=== PATIENT | female | born 1975 ===

== ENCOUNTER 2017-10-31 16:53 | Observation (INO) | payer BC ==
[2017-10-31 17:17] VITALS: BMI 32.9
[2017-10-31] MEDS ORDERED: Sodium Chloride 0.9% 1,000 ML IV STA (17:22)
--- NOTE | 2017-10-31 17:26 | ED PDOC ---
"Arrival/HPI - General Chief Complaint: Back Pain Time Seen by Provider: 10/31/17 17:20 Historian: Patient - History of Present Illness Narrative History of Present Illness (Text): 10/31/17 17:21 42 y/o female, pmh including renal stone/htn/asthma, nkda, c/o acute onset of rt. flank pain about 3 days ago with no fall or trauma. Aching pain, no abdominal or pelvic pain, no night sweat, no rash, no coughing, no recent traveling, no hematuria. Pt. stated that this feels like her usual renal stone. Past Medical History - Provider Review Nursing Documentation Reviewed: Yes - Infectious Disease Hx of Infectious Diseases: None - Tetanus Immunization Tetanus Immunization: Unknown - Cardiac Hx Hypertension: Yes - Pulmonary Hx Asthma: Yes - Neurological Hx Paralysis: No - HEENT Hx HEENT Disorder: Yes (wears eyeglasses) - Renal Hx Kidney Stones: Yes - Endocrine/Metabolic Hx Diabetes Mellitus Type 1: No Hx Diabetes Mellitus Type 2: No - Hematological/Oncological Hx Blood Transfusions: No - Musculoskeletal/Rheumatological Hx Falls: No - Psychiatric Hx Substance Use: No - Surgical History Hx Appendectomy: Yes Other/Comment: right lumpectomy benign, had removal of osteoghondroma right iliac crest - Anesthesia Hx Anesthesia Reactions: No Hx Malignant Hyperthermia: No - Suicidal Assessment Feels Threatened In Home Enviroment: No Family/Social History - Physician Review Nursing Documentation Reviewed: Yes Family/Social History: Unknown Family HX Smoking Status: Never Smoked Hx Alcohol Use: No Hx Substance Use: No Hx Substance Use Treatment: No Allergies/Home Meds Allergies/Adverse Reactions: Allergies No Known Allergies Allergy (Verified 10/14/14 10:18) Home Medications: Home Meds Medication Instructions Recorded Confirmed No Known Home Med 10/31/17 10/31/17 Review of Systems - Review of Systems Constitutional: absent: Fatigue, Fevers Eyes: absent: Vision Changes ENT: absent: Hearing Changes Respiratory: absent: SOB, Cough Cardiovascular: absent: Chest Pain Gastrointestinal: absent: Abdominal Pain, Nausea, Vomiting Musculoskeletal: Back Pain. absent: Arthralgias Skin: absent: Rash, Pruritis Physical Exam Vital Signs Reviewed: Yes Vital Signs Temp Pulse Resp BP Pulse Ox 10/31/17 20:52 18 99 10/31/17 20:46 98.1 F 73 20 150/88 95 10/31/17 19:00 98.8 F 81 16 99 10/31/17 16:54 98.6 F 79 18 133/91 H 96 Temperature: Afebrile Blood Pressure: Hypertensive Pulse: Regular Respiratory Rate: Normal Appearance: Positive for: Well-Appearing, Non-Toxic, Comfortable Pain Distress: Moderate Mental Status: Positive for: Alert and Oriented X 3 - Systems Exam Head: Present: Atraumatic, Normocephalic Pupils: Present: PERRL Extroacular Muscles: Present: EOMI Conjunctiva: Present: Normal Mouth: Present: Moist Mucous Membranes Neck: Present: Normal Range of Motion Respiratory/Chest: Present: Clear to Auscultation, Good Air Exchange. No: Respiratory Distress, Accessory Muscle Use Cardiovascular: Present: Regular Rate and Rhythm, Normal S1, S2. No: Murmurs Abdomen: No: Tenderness, Distention, Peritoneal Signs Back: Present: Normal Inspection, CVA Tenderness (mild rt. cva tenderess). No: Midline Tenderness, Paraspinal Tenderness, Pain with Leg Raise, Decubitus Ulcer Upper Extremity: Present: Normal Inspection. No: Cyanosis, Edema Lower Extremity: Present: Normal Inspection. No: Edema Neurological: Present: GCS=15, Speech Normal, Motor Func Grossly Intact, Gait Normal, Memory Normal Skin: Present: Warm, Dry, Normal Color. No: Rashes Psychiatric: Present: Alert, Oriented x 3, Normal Insight, Normal Concentration Medical Decision Making ED Course and Treatment: 10/31/17 17:28 -labs/ua -CT abdomen and pelvis -IVF/toradol/zofran -Observe and reassess 10/31/17 18:47 -Labs are non-significant -UA show hematuria but no UTI -CT abdomen and pelvis show No evidence of significant acute process on this unenhanced exam. There is no evidence of nephrolithiasis or obstructive uropathy. - Right flank hernia, containing part of the right colon. No evidence of associated colonic obstruction or hernia incarceration. - Small cystic lesions in the right ovary. See recommendations above. 10/31/17 20:10 -Pt. still has pain, IV dilaudid ordered. Pt. has high risk of having bowel incarceration on the rt. flank, needs admission for observation with surgical consult and analgesic controlled. 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 10/31/17 20:58 -residential therapist paged, discussed about the case and he will discussed with dr. clay. - Lab Interpretations Lab Results: 10/31/17 17:52 10/31/17 17:52 Lab Results 10/31/17 17:52: WBC 11.0, RBC 4.18, Hgb 12.7, Hct 37.8, MCV 90.4, MCH 30.4, MCHC 33.6, RDW 13.7, Plt Count 403, MPV 9.5, Gran % 54.9, Lymph % (Auto) 31.2, [place] % (Auto) 6.9 H, Eos % (Auto) 6.5 H, Baso % (Auto) 0.5, Gran # 6.05, Lymph # (Auto) 3.4, [place] # (Auto) 0.8 H, Eos # (Auto) 0.7, Baso # (Auto) 0.05 10/31/17 17:52: Sodium 141, Potassium 3.7, Chloride 105, Carbon Dioxide 26, Anion Gap 14, BUN 21, Creatinine 0.9, Est GFR ( Amer) > 60, Est GFR (Non- Af Amer) > 60, Random Glucose 94, Calcium 9.6, Magnesium 2.1, Total Bilirubin 0.2, AST 22, ALT 23, Alkaline Phosphatase 95, Total Protein 7.4, Albumin 4.1, Globulin 3.3, Albumin/Globulin Ratio 1.2, Lipase 81 10/31/17 17:52: Urine Color Yellow, Urine Appearance Sl cloudy, Urine pH 6.0, Ur Specific [place] >= 1.030, Urine Protein Negative, Urine Glucose (UA) Negative, Urine Ketones Negative, Urine Blood Large H, Urine Nitrate Negative, Urine Bilirubin Negative, Urine Urobilinogen 0.2, Ur Leukocyte Esterase Negative , Urine RBC 2 - 5, Urine WBC 2 - 5, Ur Epithelial Cells 3 - 4, Urine Bacteria Few I have reviewed the lab results: Yes - RAD Interpretation Radiology Orders: 10/31/17 17:22 ABD & PELVIS W/O PO OR IV CONT [CT] Stat FINDINGS: LUNG BASES: No significant abnormality seen. ABDOMEN: LIVER: No acute abnormality of the liver identified. GALLBLADDER AND BILE DUCTS: Gallbladder appears contracted. No CT evidence of acute cholecystitis. PANCREAS: No CT evidence of acute pancreatitis. SPLEEN: No acute abnormality of the spleen identified. ADRENALS: No acute abnormality of the adrenal glands identified. KIDNEYS AND URETERS: No acute abnormality of the kidneys seen. STOMACH AND BOWEL: Scattered colonic diverticulosis, without evidence of diverticulitis. Otherwise, no significant abnormality of the bowel is identified. No evidence of bowel obstruction. APPENDIX: Normal appendix is not seen, however, there are no significant inflammatory changes visualized in the expected location of the appendix to suggest appendicitis. Recommend clinical correlation. REGINALD JESUS | Final Radiology Report CONFIDENTIALITY STATEMENT This report is intended only for use by the referring physician, and only in accordance with law. If you received this in error, call [phone]. Page 2 of 2 PELVIS: BLADDER: No acute abnormality of the bladder identified. REPRODUCTIVE: Small cystic lesions in the right ovary, the largest of which measures 2 cm. These have a probably benign appearance by CT. They have CT densities mildly higher than expected for simple fluid, and they could represent complex cysts. Followup pelvic ultrasound is recommended, not necessarily on an emergent basis. Small 1.5 cm round, solid in the anterior pelvis, most likely an exophytic uterine fibroid. No acute abnormality of the uterus identified. ABDOMEN and PELVIS: INTRAPERITONEAL SPACE: No evidence of free intraperitoneal air or fluid. BONES/JOINTS: No acute fractures or other acute bony abnormality noted. SOFT TISSUES: Right flank hernia, containing the part of the cecum and the proximal ascending colon. No evidence of associated bowel obstruction. No CT findings to suggest hernia incarceration, although clinical exam is more sensitive for detection of hernia incarceration. VASCULATURE: No evidence of abdominal aortic aneurysm. No evidence of periaortic hemorrhage. LYMPH NODES: No evidence of diffuse lymphadenopathy. IMPRESSION: - No evidence of significant acute process on this unenhanced exam. There is no evidence of nephrolithiasis or obstructive uropathy. - Right flank hernia, containing part of the right colon. No evidence of associated colonic obstruction or hernia incarceration. - Small cystic lesions in the right ovary. See recommendations above. - See above for remaining findings. Thank you for allowing us to participate in the care of your patient. Dictated and Authenticated by: Bianca De La Garza MD 10/31/2017 7:47 PM Eastern Time ([place] & [place]) Roofer Helper: Radiologist - Medication Orders Current Medication Orders: Albuterol/Ipratropium (Duoneb 3 Mg/0.5 Mg (3 Ml) Ud) 3 ml IH Q2H PRN PRN Reason: Shortness of Breath Albuterol/Ipratropium (Duoneb 3 Mg/0.5 Mg (3 Ml) Ud) 3 ml IH [id number] [facility] Last Admin: 11/01/17 07:15 Dose: 3 ml Diphenhydramine HCl (Benadryl) 25 mg PO Q6 PRN PRN Reason: Itching / Pruritus Last Admin: 10/31/17 22:57 Dose: 25 mg Sodium Chloride (Sodium Chloride 0.9%) 1,000 mls @ 122 mls/hr IV .Q8H12M [facility] Ketorolac Tromethamine (Toradol) 15 mg IVP Q6 [facility] Last Admin: 11/01/17 06:16 Dose: 15 mg MAR Pain Assessment Document 11/01/17 06:16 [facility] (Rec: 11[facility]01/17 06:16 [id number] Pain Reassessment Is this a pain reassessment? Yes Sleep Is patient sleeping during reassessment? No Presence of Pain Presence of Pain Yes Pain Scale Used Pain Scale Used Numeric Location Left, Right or Bilateral Right Pain Location Body Site Abdomen Description Description Intermittent Alleviating Factors/Management Medication Techniques Alleviating Factors Medication IVP Administration Document 11/01/17 06:16 [facility] (Rec: 11/01/17 06:16 [id number]) Charges for Administration # of IVP Administrations 1 Lisinopril (Zestril) 5 mg PO DAILY [facility] Last Admin: 11/01/17 10:09 Dose: 5 mg MAR Pulse and Blood Pressure Document 11/01/17 10:09 JOE (Rec: 11/01/17 10:09 AJ [id number]) Pulse Pulse Rate (60-90) 73 Blood Pressure Blood Pressure (100/60-150/90) 124/75 Ondansetron HCl (Zofran Inj) 4 mg IVP Q6H PRN PRN Reason: Nausea/Vomiting Pantoprazole Sodium (Protonix Ec Tab) 40 mg PO 0600 [facility] Last Admin: 11/01/17 06:17 Dose: 40 mg Discontinued Medications Albuterol/Ipratropium (Duoneb 3 Mg/0.5 Mg (3 Ml) Ud) 3 ml IH STAT STA Stop: 10/31/17 22:19 Last Admin: 10/31/17 22:57 Dose: 3 ml Hydromorphone HCl (Dilaudid) 0.5 mg IVP STAT STA Stop: 10/31/17 20:14 Last Admin: 10/31/17 20:24 Dose: Not Given Non-Admin Reason: Patient Refused Sodium Chloride (Sodium Chloride 0.9%) 1,000 mls @ 999 mls/hr IV .Q1H1M STA Stop: 10/31/17 18:22 Last Admin: 10/31/17 17:54 Dose: 999 mls/hr eMAR Start Stop Document 10/31/17 17:54 [email or web address] (Rec: 10/31/17 17:54 [email or web address] [id number]- [facility] [employer] [employer]) Intravenous Solution Start Date 10/31/17 Start Time 17:54 End Date 10/31/17 Sodium Chloride (Sodium Chloride 0.9%) 1,000 mls @ 100 mls/hr IV .Q10H [facility] Last Admin: 10/31/17 22:58 Dose: 100 mls/hr eMAR Start Stop Document 10/31/17 22:58 [facility] (Rec: 10/31/17 22:58 [id number]) Intravenous Solution Start Date 10/31/17 Start Time 22:58 Ketorolac Tromethamine (Toradol) 30 mg IVP STAT STA Stop: 10/31/17 17:23 Last Admin: 10/31/17 17:55 Dose: 30 mg MAR Pain Assessment Document 10/31/17 17:55 [email or web address] (Rec: 10/31/17 17:55 [email or web address] [id number] [employer]) Pain Reassessment Is this a pain reassessment? No Sleep Is patient sleeping during reassessment? No Presence of Pain Presence of Pain Yes Pain Scale Used Pain Scale Used Numeric Description Description Constant Intensity of Pain at present 19 Pain Behavior Facial Grimacing Aggravating Factors Changing Position Alleviating Factors/Management Medication Techniques Alleviating Factors Medication IVP Administration Document 10/31/17 17:55 [email or web address] (Rec: 10/31/17 17:55 [email or web address] [id number] [employer] [employer]) Charges for Administration # of IVP Administrations 1 Morphine Sulfate (Morphine) 1 mg IVP STAT STA Stop: 11/01/17 00:48 Last Admin: 11/01/17 01:06 Dose: 1 mg [facility] Pain Assessment Document 11/01/17 01:06 [facility] (Rec: 11/01/17 01:07 [id number]) Pain Reassessment Is this a pain reassessment? Yes Sleep Is patient sleeping during reassessment? No Presence of Pain Presence of Pain Yes Pain Scale Used Pain Scale Used Numeric Location Left, Right or Bilateral Right Pain Location Body Site Abdomen Description Description Intermittent Intensity of Pain at present 7 Acceptable Level of Pain 0 Alleviating Factors/Management Medication Techniques Alleviating Factors Medication Pain not relieved and LIP/MD was Yes notified IVP Administration Document 11/01/17 01:06 [facility] (Rec: 11/01/17 01:07 [id number]) Charges for Administration # of IVP Administrations 1 Re-Assess: [facility] Pain Assessment Document 11/01/17 02:06 [facility] (Rec: 11/01/17 07:33 [facility]-[id number]) Pain Reassessment Is this a pain reassessment? Yes Sleep Is patient sleeping during reassessment? Yes Presence of Pain Presence of Pain No Ondansetron HCl (Zofran Inj) 4 mg IVP STAT STA Stop: 10/31/17 17:23 Last Admin: 10/31/17 17:55 Dose: 4 mg IVP Administration Document 10/31/17 17:55 [email or web address] (Rec: 10/31/17 17:55 [email or web address] [id number]- [facility]) Charges for Administration # of IVP Administrations 1 Potassium Chloride (K-Dur 20 Meq Er Tab) 20 meq PO ONCE ONE Stop: 11/01/17 09:15 Last Admin: 11/01/17 10:09 Dose: 20 meq - PA / MERCHANDISE ADJUSTMENT CLERK / Resident Statement MD/DO has reviewed & agrees with the documentation as recorded. Disposition/Present on Arrival - Present on Arrival Any Indicators Present on Arrival: No History of DVT/PE: No History of Uncontrolled Diabetes: No Urinary Catheter: No History of Decub. Ulcer: No History Surgical Site Infection Following: None - Disposition Have Diagnosis and Disposition been Completed?: Yes Diagnosis: Flank pain, Hernia of flank, Intractable pain Disposition: HOSPITALIZED Disposition Time: 17:28 Patient Plan: Admission, Observation Patient Problems: Current Active Problems Problem Status Onset Flank pain Acute Hernia of flank Acute Intractable pain Acute Condition: STABLE"
[2017-10-31 18:15] LABS: BASO # 0.05 K/mm3 (0.0-2.0); BASO % 0.5 % (0.0-3.0); EOS # 0.7 (0.0-0.7); EOS % 6.5 % (1.5-5.0); GRAN # 6.05 (1.4-6.5); GRAN % 54.9 % (50.0-68.0); HEMOGLOBIN 12.7 g/dL (12.0-16.0); LYMPH # 3.4 (1.2-3.4); LYMPH % 31.2 % (22.0-35.0); MEAN CELL VOLUME 90.4 fl (80.0-105.0); MEAN CORPUSCULAR HEMOGLOBIN 30.4 pg (25.0-35.0); MEAN CORPUSCULAR HGB CONC 33.6 g/dl (31.0-37.0); MEAN PLATELET VOLUME 9.5 fl (7.0-11.0); MONO # 0.8 (0.1-0.6); MONO % 6.9 % (1.0-6.0); RBC 4.18 10^6/uL (3.5-6.1); RED CELL DISTRIBUTION WIDTH 13.7 % (11.5-14.5)
[2017-10-31 18:19] LABS: URINE BILIRUBIN NEGATIVE (NEGATIVE); URINE BLOOD LARGE (NEGATIVE); URINE GLUCOSE (UA) NEGATIVE (NEGATIVE); URINE LEUKOCYTE ESTERASE NEGATIVE Leu/uL (NEGATIVE); URINE PROTEIN NEGATIVE mg/dL (<30 mg/dL); URINE UROBILINOGEN 0.2 E.U./dL (<1 E.U./dL)
[2017-10-31 18:23] LABS: URINE APPEARANCE SL CLOUDY (CLEAR); URINE COLOR YELLOW (YELLOW)
[2017-10-31 18:25] LABS: ALB/GLOB RATIO 1.2 (1.1-1.8); ALBUMIN 4.1 g/dL (3.0-4.8); ALT/SGPT 23 U/L (7-56); AST/SGOT 22 U/L (14-36); BLOOD UREA NITROGEN 21 mg/dL (7-21); CALCIUM 9.6 mg/dL (8.4-10.5); GFR AFRICAN-AMERICAN > 60; GFR NON-AFRICAN AMERICAN > 60; LIPASE 81 U/L (23-300)
[2017-10-31 18:34] LABS: URINE BACTERIA FEW (NEG)
--- NOTE | 2017-10-31 19:48 | CT ---
EXAM: CT Abdomen and Pelvis Without Intravenous Contrast EXAM DATE/TIME: 10/31/2017 5:22 PM CLINICAL HISTORY: 42 years old, female; Pain; Abdominal pain; Patient HX: Rt. Flank pain, h/o renal stone TECHNIQUE: Axial computed tomography images of the abdomen and pelvis without intravenous contrast. All CT scans at this facility use one or more dose reduction techniques, viz.: automated exposure control; ma/kV adjustment per patient size (including targeted exams where dose is matched to indication; i.e. head); or iterative reconstruction technique. Coronal and sagittal reformatted images were created and reviewed. COMPARISON: Prior pelvic ultrasound of 2016-05-11 FINDINGS: LUNG BASES: No significant abnormality seen. ABDOMEN: LIVER: No acute abnormality of the liver identified. GALLBLADDER AND BILE DUCTS: Gallbladder appears contracted. No CT evidence of acute cholecystitis. PANCREAS: No CT evidence of acute pancreatitis. SPLEEN: No acute abnormality of the spleen identified. ADRENALS: No acute abnormality of the adrenal glands identified. KIDNEYS AND URETERS: No acute abnormality of the kidneys seen. STOMACH AND BOWEL: Scattered colonic diverticulosis, without evidence of diverticulitis. Otherwise, no significant abnormality of the bowel is identified. No evidence of bowel obstruction. APPENDIX: Normal appendix is not seen, however, there are no significant inflammatory changes visualized in the expected location of the appendix to suggest appendicitis. Recommend clinical correlation. PELVIS: BLADDER: No acute abnormality of the bladder identified. REPRODUCTIVE: Small cystic lesions in the right ovary, the largest of which measures 2 cm. These have a probably benign appearance by CT. They have CT densities mildly higher than expected for simple fluid, and they could represent complex cysts. Followup pelvic ultrasound is recommended, not necessarily on an emergent basis. Small 1.5 cm round, solid in the anterior pelvis, most likely an exophytic uterine fibroid. No acute abnormality of the uterus identified. ABDOMEN and PELVIS: INTRAPERITONEAL SPACE: No evidence of free intraperitoneal air or fluid. BONES/JOINTS: No acute fractures or other acute bony abnormality noted. SOFT TISSUES: Right flank hernia, containing the part of the cecum and the proximal ascending colon. No evidence of associated bowel obstruction. No CT findings to suggest hernia incarceration, although clinical exam is more sensitive for detection of hernia incarceration. VASCULATURE: No evidence of abdominal aortic aneurysm. No evidence of periaortic hemorrhage. LYMPH NODES: No evidence of diffuse lymphadenopathy. IMPRESSION: - No evidence of significant acute process on this unenhanced exam. There is no evidence of nephrolithiasis or obstructive uropathy. - Right flank hernia, containing part of the right colon. No evidence of associated colonic obstruction or hernia incarceration. - Small cystic lesions in the right ovary. See recommendations above. - See above for remaining findings.
[2017-10-31] MEDS ORDERED: HYDROmorphone 0.5 mg/0.5 ml ISec IVP STA (20:13)
[2017-10-31] MEDS ORDERED: Sodium Chloride 0.9% 1,000 ML IV SCH ×2 (22:00→23:43)
[2017-10-31] MEDS ORDERED: Albuterol-Ipratrop 3 mg / 0.5 (3 ml) UD IH PRN (22:05)
[2017-10-31] MEDS ORDERED: Albuterol-Ipratrop 3 mg / 0.5 (3 ml) UD IH STA (22:18)
--- NOTE | 2017-11-01 00:13 | CP.PCM.CON ---
History of Present Illness - History of Present Illness History of Present Illness: Surgery Consult note. Dr. Hobson 42yo F with PMHx of Asthma and renal stones here for evaluation of right flank pain. Patient states that the pain started 3 days ago, described as a dull ache and gradually getting worse. Not associated with any nausea or vomiting. No abdominal pain. No fevers or chills. States that it felt similar to her renal colic pain, so she came in for further evaluation. She states that she has a history of a right flank hernia diagnosed on prior CT scans from many years ago. She denies having any symptoms from it until now. She denies any changes in bowel habits, last BM yesterday, normal caliber, no blood. Currently passing flatus. She denies possibility of . Denies having any dysuria or urinary complaints, no sensation of passing stone. CT Abd/Pelvis with no evidence of renal stones. Does show colonic hernia into right flank, no evidence of bowel incarceration or obstruction. Of note, patient reports excision of Right Iliac crest osteochondroma in 2015 at [facility]. PMD: Dr. Lou PMHx: Asthma, Renal Stones PSHx: Open Appendectomy, Right Breast lumpectomy (benign), Right iliac crest osteochondroma removal in 2015 at [facility]. Right renal stone lithotripsy x2 Family Hx: Non-contributory Social Hx: Denies Tobacco, Denies ETOH, Denies illicit drugs NKDA Review of Systems - Review of Systems All systems: reviewed and no additional remarkable complaints except - Constitutional Constitutional: absent: Chills, Fever - Cardiovascular Cardiovascular: absent: Chest Pain, Dyspnea - Respiratory Respiratory: absent: Dyspnea - Gastrointestinal Gastrointestinal: absent: Abdominal Pain, Change in Stool Character, Diarrhea, Hematochezia, Melena, Nausea, Vomiting Additional comments: Right Flank pain - Genitourinary Genitourinary: Hx Renal/Bladder Calculi. absent: Difficulty Urinating, Dysuria Past Patient History - Infectious Disease Hx of Infectious Diseases: None - Tetanus Immunizations Tetanus Immunization: Unknown - Past Medical History & Family History Past Medical History?: Yes Past Family History: Reviewed and not pertinent - Past Social History Smoking Status: Never Smoked Alcohol: None Drugs: Denies - CARDIAC Hx Hypertension: Yes - PULMONARY Hx Asthma: Yes - NEUROLOGICAL Hx Paralysis: No - HEENT Hx HEENT Problems: Yes (wears eyeglasses) - RENAL Hx Kidney Stones: Yes - ENDOCRINE/METABOLIC Hx Diabetes Mellitus Type 1: No Hx Diabetes Mellitus Type 2: No - HEMATOLOGICAL/ONCOLOGICAL Hx Blood Transfusions: No - MUSCULOSKELETAL/RHEUMATOLOGICAL Hx Falls: No - PSYCHIATRIC Hx Substance Use: No - SURGICAL HISTORY Hx Appendectomy: Yes Other/Comment: right lumpectomy benign, had removal of osteoghondroma right iliac crest - ANESTHESIA Hx Anesthesia Reactions: No Hx Malignant Hyperthermia: No Meds Allergies/Adverse Reactions: Allergies Allergy/AdvReac Type Severity Reaction Status Date / Time No Known Allergies Allergy Verified 10/14/14 10:18 - Medications Medications: Current Medications Albuterol/Ipratropium (Duoneb 3 Mg/0.5 Mg (3 Ml) Ud) 3 ml IH Q2H PRN PRN Reason: Shortness of Breath Albuterol/Ipratropium (Duoneb 3 Mg/0.5 Mg (3 Ml) Ud) 3 ml IH [id number] [facility] Diphenhydramine HCl (Benadryl) 25 mg PO Q6 PRN PRN Reason: Itching / Pruritus Last Admin: 10/31/17 22:57 Dose: 25 mg Sodium Chloride (Sodium Chloride 0.9%) 1,000 mls @ 122 mls/hr IV .Q8H12M [facility] Ketorolac Tromethamine (Toradol) 15 mg IVP Q6 [facility] Last Admin: 10/31/17 23:03 Dose: 15 mg Ondansetron HCl (Zofran Inj) 4 mg IVP Q6H PRN PRN Reason: Nausea/Vomiting Pantoprazole Sodium (Protonix Ec Tab) 40 mg PO 0600 [facility] Physical Exam - Constitutional Appears: Well, Non-toxic, No Acute Distress - Head Exam Head Exam: ATRAUMATIC, NORMAL INSPECTION, NORMOCEPHALIC - Eye Exam Eye Exam: EOMI, Normal appearance - ENT Exam ENT Exam: Mucous Membranes Moist - Neck Exam Neck exam: Positive for: Normal Inspection - Respiratory Exam Respiratory Exam: NORMAL BREATHING PATTERN. absent: Accessory Muscle Use, Respiratory Distress - Cardiovascular Exam Cardiovascular Exam: RRR. absent: JVD - GI/Abdominal Exam GI & Abdominal Exam: Soft. absent: Distended, Firm, Guarding, Rigid, Tenderness Additional comments: Abdominal exam performed in standing and supine position. No bulge/hernia noted on exam. No tenderness to palpation. No rebound. No guarding. No peritoneal signs. Right hip surgical scar noted, well healed but with small keloid noted. RLQ, angelica-umbilical surgical scar noted, well healed. - Back Exam Back exam: absent: CVA tenderness (L), CVA tenderness (R) - Neurological Exam Neurological exam: Alert, Normal Gait, Oriented x3 - Psychiatric Exam Psychiatric exam: Normal Affect, Normal Mood - Skin Skin Exam: Dry, Intact, Normal Color, Warm Results - Vital Signs Recent Vital Signs: Last Vital Signs Temp 98.1 F 10/31/17 20:46 Pulse 80 10/31/17 23:00 Resp 18 10/31/17 20:52 BP 150/88 10/31/17 20:46 Pulse Ox 99 10/31/17 20:52 - Labs Result Diagrams: 11/01/17 07:30 11/01/17 07:30 Assessment & Plan - Assessment and Plan (Free Text) Assessment: 42yo F with right flank hernia - likely associated to previous Right iliac crest osteochondroma excision in 2014 - VSS - CT Abd/pelvis noted - No evidence of bowel obstruction Plan: - Diet as tolerated - Pain management - f/u lactic acid - f/u AM labs - No acute surgical intervention. May follow up as out-patient Further recs as per Dr. Joce Hall PGY1 surgery pager: [phone]
--- NOTE | 2017-11-01 00:32 | CP.PCM.HP ---
History of Present Illness - History of Present Illness History of Present Illness: Medicine H&P: Dr. Gonzalez Chief Complaint: R flank pain HPI: 42 year old female with past medical history significant for asthma, R chondroma , nephrolithiasis s/p ureteral stents, and hypertension presents with one day duration of R sided flank pain associated with nausea and vomiting. Patient denies any fevers or chills, burning on urination, fatigue or anemia symptoms. Patient does have significant pain that has been resistant to toradol. No other complaints. Review of Systems: 12 point ROS obtained and negative except as per HPI Surgical History: R Flank chondroma removal; Ureteral stent Medical History: Asthma, R Chondroma, Nephrolithiasis, HTN Allergies: NKDA Social History: Denies alcohol, tobacco, illicits Home meds: Reviewed, as per MAR there are none Family History: Hypertension PMD: Ivone Present on Admission - Present on Admission Any Indicators Present on Admission: No Past Patient History - Infectious Disease Hx of Infectious Diseases: None - Tetanus Immunizations Tetanus Immunization: Unknown - Past Social History Smoking Status: Never Smoked - CARDIAC Hx Hypertension: Yes - PULMONARY Hx Asthma: Yes - NEUROLOGICAL Hx Paralysis: No - HEENT Hx HEENT Problems: Yes (wears eyeglasses) - RENAL Hx Kidney Stones: Yes - ENDOCRINE/METABOLIC Hx Diabetes Mellitus Type 1: No Hx Diabetes Mellitus Type 2: No - HEMATOLOGICAL/ONCOLOGICAL Hx Blood Transfusions: No - MUSCULOSKELETAL/RHEUMATOLOGICAL Hx Falls: No - PSYCHIATRIC Hx Substance Use: No - SURGICAL HISTORY Hx Appendectomy: Yes Other/Comment: right lumpectomy benign, had removal of osteoghondroma right iliac crest - ANESTHESIA Hx Anesthesia Reactions: No Hx Malignant Hyperthermia: No Meds Allergies/Adverse Reactions: Allergies Allergy/AdvReac Type Severity Reaction Status Date / Time No Known Allergies Allergy Verified 10/14/14 10:18 Physical Exam - Constitutional Appears: Well - Head Exam Head Exam: ATRAUMATIC, NORMAL INSPECTION, NORMOCEPHALIC - Eye Exam Eye Exam: EOMI, Normal appearance, PERRL Pupil Exam: NORMAL ACCOMODATION, PERRL - ENT Exam ENT Exam: Mucous Membranes Moist, Normal Exam - Neck Exam Neck exam: Positive for: Normal Inspection - Respiratory Exam Respiratory Exam: Clear to Auscultation Bilateral, NORMAL BREATHING PATTERN - Cardiovascular Exam Cardiovascular Exam: REGULAR RHYTHM - GI/Abdominal Exam GI & Abdominal Exam: Normal Bowel Sounds, Soft, Tenderness. absent: Distended, Firm, Guarding, Hypoactive Bowel Sounds, Mass, Rebound Additional comments: R flank tenderness; non-palpable hernia - Extremities Exam Extremities exam: Positive for: normal inspection - Back Exam Back exam: NORMAL INSPECTION - Neurological Exam Neurological exam: Alert, CN II-XII Intact, Normal Gait, Oriented x3, Reflexes Normal - Psychiatric Exam Psychiatric exam: Normal Affect, Normal Mood - Skin Skin Exam: Dry, Intact, Normal Color, Warm Results - Vital Signs Recent Vital Signs: Last Vital Signs Temp 98.1 F 10/31/17 20:46 Pulse 80 10/31/17 23:00 Resp 18 10/31/17 20:52 BP 150/88 10/31/17 20:46 Pulse Ox 99 10/31/17 20:52 - Labs Result Diagrams: 10/31/17 17:52 10/31/17 17:52 Assessment & Plan - Assessment and Plan (Free Text) Assessment: 42 year old female with past medical history pertinent for R chondroma s/p removal, and nephrolithiasis s/p ureteral stents, presents with one day duration of R sided flank pain associated with nausea. CT Abdomen and Pelvis revealed a R sided hernia containing a loop of bowel that does not appear strangulated; no stone is visualized Lactic acid is negative; however, patient does have large blood on UA as she has had on past visits when she has had nephrolithiasis. Patient's pain was resistant to toradol which was given to her in the ED as well as on the floors. One dose of Morphine was given. At this time, the pain appears to be secondary to the hernia but she may have a stone as well - patient has seen Dr. Noriega in the past. Patient also has a history of asthma, and was a little tight on exam but is saturating well on room air. Patient also hypertensive, has history of hypertension in her past records, but no home medications for it. Plan: Right sided flank pain, 2/2 to Nephrolithiasis VS Hernia - Surgical Consult: Dr. Hobson Per resident Dr. Hall - patient does not need to be NPO right now - Urology Consult: Dr. Noriega - NS at 122 mls/hr - Pain management: Toradol q6 PRN History of Asthma - Duonebs scheduled and PRN HTN - Start Lisinopril 5 daily
[2017-11-01] MEDS ORDERED: Morphine 4 mg/ml ISec IVP STA (00:47)
[2017-11-01] MEDS: Albuterol-Ipratrop 3 mg / 0.5 (3 ml) UD IH SCH ×3 (01:02→13:12)
[2017-11-01] MEDS ORDERED: Pantoprazole 40 mg EC Tab PO SCH (06:00)
[2017-11-01 07:23] VITALS: RESP 20; O2SAT 95
[2017-11-01 08:09] LABS: BASO # 0.05 K/mm3 (0.0-2.0); BASO % 0.6 % (0.0-3.0); EOS # 0.6 (0.0-0.7); EOS % 6.3 % (1.5-5.0); GRAN # 4.97 (1.4-6.5); GRAN % 54.7 % (50.0-68.0); HEMOGLOBIN 11.7 g/dL (12.0-16.0); LYMPH # 2.8 (1.2-3.4); MEAN CELL VOLUME 90.8 fl (80.0-105.0); MEAN CORPUSCULAR HEMOGLOBIN 29.3 pg (25.0-35.0); MEAN CORPUSCULAR HGB CONC 32.2 g/dl (31.0-37.0); MEAN PLATELET VOLUME 9.7 fl (7.0-11.0); MONO # 0.7 (0.1-0.6); MONO % 7.4 % (1.0-6.0); RED CELL DISTRIBUTION WIDTH 13.7 % (11.5-14.5); WHITE BLOOD COUNT 9.1 10^3/ul (4.5-11.0)
[2017-11-01 08:40] LABS: ALB/GLOB RATIO 1.1 (1.1-1.8); ALBUMIN 3.5 g/dL (3.0-4.8); ALT/SGPT 22 U/L (7-56); AST/SGOT 23 U/L (14-36); BLOOD UREA NITROGEN 14 mg/dL (7-21); CALCIUM 8.3 mg/dL (8.4-10.5); GFR AFRICAN-AMERICAN > 60; GFR NON-AFRICAN AMERICAN > 60
[2017-11-01 08:46] VITALS: TEMP 97.2
[2017-11-01] MEDS ORDERED: Potassium Chloride 20 mEq ER Tab PO ONE (09:14)
[2017-11-01 10:11] VITALS: BP 124/75; PULSE 73
--- NOTE | 2017-11-01 15:57 | CP.PCM.DIS ---
Provider - Provider Date of Admission: 10/31/17 20:16 Attending physician: Sherman Torres MD Primary care physician: aMrva Wiseman APN Consults: General Surgery: DR. Hobson Time Spent in preparation of Discharge (in minutes): 25 Diagnosis - Discharge Diagnosis (1) Flank pain Status: Suspected (2) Hernia of flank Status: Acute Hospital Course - Lab Results Lab Results: Most Recent Lab Values WBC 9.1 10^3/ul (4.5-11.0) 11/01/17 07:30 RBC 4.00 10^6/uL (3.5-6.1) 11/01/17 07:30 Hgb 11.7 g/dL (12.0-16.0) L 11/01/17 07:30 Hct 36.3 % (36.0-48.0) 11/01/17 07:30 MCV 90.8 fl (80.0-105.0) 11/01/17 07:30 MCH 29.3 pg (25.0-35.0) 11/01/17 07:30 MCHC 32.2 g/dl (31.0-37.0) 11/01/17 07:30 RDW 13.7 % (11.5-14.5) 11/01/17 07:30 Plt Count 379 10^3/uL (120.0-450.0) 11/01/17 07:30 MPV 9.7 fl (7.0-11.0) 11/01/17 07:30 Gran % 54.7 % (50.0-68.0) 11/01/17 07:30 Lymph % (Auto) 31.0 % (22.0-35.0) 11/01/17 07:30 [place] % (Auto) 7.4 % (1.0-6.0) H 11/01/17 07:30 Eos % (Auto) 6.3 % (1.5-5.0) H 11/01/17 07:30 Baso % (Auto) 0.6 % (0.0-3.0) 11/01/17 07:30 Gran # 4.97 (1.4-6.5) 11/01/17 07:30 Lymph # (Auto) 2.8 (1.2-3.4) 11/01/17 07:30 [place] # (Auto) 0.7 (0.1-0.6) H 11/01/17 07:30 Eos # (Auto) 0.6 (0.0-0.7) 11/01/17 07:30 Baso # (Auto) 0.05 K/mm3 (0.0-2.0) 11/01/17 07:30 Sodium 140 mmol/L (132-148) 11/01/17 07:30 Potassium 3.5 mmol/L (3.6-5.0) L 11/01/17 07:30 Chloride 108 mmol/L (98-107) H 11/01/17 07:30 Carbon Dioxide 23 mmol/L (21-33) 11/01/17 07:30 Anion Gap 12 (10-20) 11/01/17 07:30 BUN 14 mg/dL (7-21) 11/01/17 07:30 Creatinine 0.7 mg/dl (0.7-1.2) 11/01/17 07:30 Est GFR ( Amer) > 60 11/01/17 07:30 Est GFR (Non-Af Amer) > 60 11/01/17 07:30 Random Glucose 92 mg/dL (70-110) 11/01/17 07:30 Lactic Acid 1.0 mmol/L (0.7-2.1) 10/31/17 23:50 Calcium 8.3 mg/dL (8.4-10.5) L 11/01/17 07:30 Magnesium 2.1 mg/dL (1.7-2.2) 10/31/17 17:52 Total Bilirubin 0.2 mg/dL (0.2-1.3) 11/01/17 07:30 AST 23 U/L (14-36) 11/01/17 07:30 ALT 22 U/L (7-56) 11/01/17 07:30 Alkaline Phosphatase 89 U/L (38-126) 11/01/17 07:30 Total Protein 6.8 g/dL (5.8-8.3) 11/01/17 07:30 Albumin 3.5 g/dL (3.0-4.8) 11/01/17 07:30 Globulin 3.3 gm/dL 11/01/17 07:30 Albumin/Globulin Ratio 1.1 (1.1-1.8) 11/01/17 07:30 Lipase 81 U/L (23-300) 10/31/17 17:52 Urine Color Yellow (YELLOW) 10/31/17 17:52 Urine Appearance Sl cloudy (CLEAR) 10/31/17 17:52 Urine pH 6.0 (4.7-8.0) 10/31/17 17:52 Ur Specific [place] >= 1.030 (1.005-1.035) 10/31/17 17:52 Urine Protein Negative mg/dL (<30 mg/dL) 10/31/17 17:52 Urine Glucose (UA) Negative mg/dL (NEGATIVE) 10/31/17 17:52 Urine Ketones Negative mg/dL (NEGATIVE) 10/31/17 17:52 Urine Blood Large (NEGATIVE) H 10/31/17 17:52 Urine Nitrate Negative (NEGATIVE) 10/31/17 17:52 Urine Bilirubin Negative (NEGATIVE) 10/31/17 17:52 Urine Urobilinogen 0.2 E.U./dL (<1 E.U./dL) 10/31/17 17:52 Ur Leukocyte Esterase Negative Roxana/uL (NEGATIVE) 10/31/17 17:52 Urine RBC 2 - 5 /hpf (0-2) 10/31/17 17:52 Urine WBC 2 - 5 /hpf (0-6) 10/31/17 17:52 Ur Epithelial Cells 3 - 4 /hpf (0-5) 10/31/17 17:52 Urine Bacteria Few (NEG) 10/31/17 17:52 - Hospital Course Hospital Course: Patient is a 42 year old female with past medical history significant for asthma , R chondroma, nephrolithiasis and HTN who presented to [facility] [place], [place] with right sided flank pain. Patient was evaluated in ED and found to have intractable right sided flank pain. Abdominal/Pelvis CT in ED showed no evidence of nephrolithiasis and presence of hernia within right side with a loop of bowel that appeared strangulated. Patient's lactic acid was normal. Patient was noted to have UA with large blood an d2-3 RBCs. General surgery was consulted and evaluated the patient to be stable for discharge with follow up outpatient for resolution of right sided flank hernia. Patient was noted to be passing gas, having bowel movements and tolerating her diet through out stay. Patient was able to ambulate unassisted. Discharge instructions, medication reconciliation, and appropriate follow up were discussed with patient. Patient was in understanding and agreeable with discharge. Patient was medically stable for outpatient follow up at time of discharge. - Date & Time of H&P Date of H&P: 11/01/17 Time of H&P: 00:17 Discharge Exam - Head Exam Head Exam: ATRAUMATIC, NORMAL INSPECTION, NORMOCEPHALIC - Eye Exam Eye Exam: EOMI, PERRL - Neck Exam Neck exam: Full Rom - Respiratory Exam Respiratory Exam: NORMAL BREATHING PATTERN, UNREMARKABLE - Cardiovascular Exam Cardiovascular Exam: REGULAR RHYTHM, +S1, +S2 - GI/Abdominal Exam GI & Abdominal Exam: Normal Bowel Sounds, Soft. absent: Tenderness - Extremities Exam Extremities exam: normal inspection, pedal pulses present - Back Exam Additional comments: right sided posterior lumbar and lower thoracic tenderness - Neurological Exam Neurological exam: Alert, Oriented x3 - Psychiatric Exam Psychiatric exam: Normal Affect, Normal Mood - Skin Skin Exam: Dry, Warm Discharge Plan - Discharge Medications Prescriptions: oxyCODONE/Acetaminophen [Percocet 5/325 mg Tab] 1 ea PO Q6H #8 tab - Follow Up Plan Condition: STABLE Disposition: HOME/ ROUTINE Instructions: Kidney Stones in Adults, Kidney Infection, Asthma in Adults, High Blood Pressure in Adults, Flank Pain Additional Instructions: Follow up with general surgery within 1 to 2 weeks upon discharge Follow up with PMD within 1 to 2 weeks upon discharge Take medications as prescribed to you Return to the nearest ED if your symptoms return or worsen Referrals: Marva Wiseman APN [Primary Care Provider] -
--- NOTE | 2017-11-02 08:35 | CON ---
DATE: 11/01/2017 HISTORY OF PRESENT ILLNESS: This 42 years old, admitted with right flank pain, thinking she has kidney stone. A CAT scan is done that showed a hernia that she has known about in the right flank after resection of an osteochondroma. The hernia on the CAT scan is rather large, but it is reducible. There is colon in it, but nothing is compromised and is non-obstructive. PHYSICAL EXAMINATION: GENERAL: She is mildly tender, but nothing remarkable. She is afebrile. VITAL SIGNS: Normal. LABORATORY DATA: White count is normal. Hemoglobin is normal. SMA-18 shows a potassium of 3.5, otherwise normal. ASSESSMENT AND PLAN: I believe this is not the cause for the pain and this could be repaired electively and we will plan as such with now nothing is remarkable. There is a lot of blood in the urine and the workup is ongoing. Ayaan Hobson MD
== END 2017-11-01 17:57 | disposition home or self-care (01) ==
LOC: ED 16:53 → ERH 20:16 → 5RNO 21:18
PROVIDERS: ADMIT Internal Medicine; ATTEND Internal Medicine
DX: K46.9 Unspecified abdominal hernia without obstruction or gangrene (principal); Z87.442 Personal history of urinary calculi; I10 Essential (primary) hypertension; J45.909 Unspecified asthma, uncomplicated; Z90.49 Acquired absence of other specified parts of digestive tract
CPT/HCPCS: 36415; 74176; 80053; 81001; 83605; 83690; 83735; 85025; 94640; 94760; 96374; 96375; 96376; 99284; G0378; J1885; J2270; J2405; J7040